=== PATIENT | female | born 1990 | race Two or more races ===

== ENCOUNTER 2020-07-18 12:07 | Observation (INO) | payer OTHER ==
[~2020-07-18 12:07] MED LIST: IBUP-2070 PO; PREN1TAB80 PO
[2020-07-18 12:53] LABS: COVID AG,FIA SOURCE NASOPHARYNGEAL
== END 2020-07-18 12:20 | disposition home or self-care (01) ==
LOC: 4S 12:07
PROVIDERS: ADMIT Obstetrics & Gynecology; ATTEND Obstetrics & Gynecology
DX: Z34.93 Encounter for supervision of normal pregnancy, unspecified, third trimester (principal); Z20.828 Contact with and (suspected) exposure to other viral communicable diseases; Z3A.39 39 weeks gestation of pregnancy
CPT/HCPCS: 87426; 99219

== ENCOUNTER 2020-07-20 05:55 | Inpatient (IN) | payer OTHER ==
[~2020-07-20] VITALS: Ht 154.9 cm; Wt 59.9 kg
[2020-07-20] MEDS ORDERED: RINGERS SOLUTION,LACTATED 1,000 ML IV ONE ×3 (06:04→08:48)
[2020-07-20] MEDS ORDERED: CITRIC ACID/SODIUM CITRATE 30 ML SOLUTION UDCUP PO ONE (06:15)
[2020-07-20] MEDS ORDERED: METOCLOPRAMIDE HCL 5 MG/ML 2 ML VIAL IVP ONE (06:15)
[2020-07-20 06:30] VITALS: BP 112/75
[2020-07-20 06:42] LABS: BASOPHILS % (AUTO) 0.4 % (0.0-2.0); EOSINOPHILS % (AUTO) 3.2 % (1.0-6.0); HEMATOCRIT 35.5 % (36-46); HEMOGLOBIN 12.3 g/dL (12.0-16.0); LYMPHOCYTES # (AUTO) 2.1 K/uL (1.0-4.8); LYMPHOCYTES % (AUTO) 27.4 % (22.0-44.0); MEAN CORPUSCULAR HEMOGLOBIN 32.3 pg (26.0-34.0); MEAN CORPUSCULAR HGB CONC 34.8 G/dL (31.0-37.0); MEAN CORPUSCULAR VOLUME 93 fL (80-100); MONOCYTES # (AUTO) 0.5 K/uL (0.1-1.0); NEUTROPHILS # (AUTO) 4.9 K/uL (1.8-7.7); PLATELET COUNT (AUTO) 183 K/uL (150-450); RED BLOOD CELL COUNT(AUTO) 3.82 MIL/uL (4.00-5.20); RED CELL DISTRIBUTION WIDTH 13.3 % (11.5-14.5)
[2020-07-20] MEDS ORDERED: FOLI0.4T92 PO (06:58)
[2020-07-20] MEDS ORDERED: BUPIVACAINE HCL/DEX-WATER/PF 0.75% 2 ML AMP ONE (07:17)
[2020-07-20] MEDS ORDERED: SODIUM CHLORIDE 0.9% 1,000 ML ONE (07:18)
[2020-07-20] MEDS ORDERED: FentaNYL CITRATE-PF 100 MCG/2 ML VIAL IVP PRN ×2 (08:30)
[2020-07-20] MEDS ORDERED: MEPERIDINE-PF 25 MG/ML VIAL IVP PRN (08:30)
[2020-07-20] MEDS ORDERED: NALOXONE HCL 0.4 MG/ML VIAL IVP PRN (08:30)
[2020-07-20] MEDS ORDERED: HYDROmorphone 2 MG/ML SYRINGE IVP PRN (08:30)
[2020-07-20] MEDS ORDERED: DiphenhydrAMINE HCL 50 MG/ML VIAL IVP PRN (08:30)
[2020-07-20] MEDS ORDERED: NALBUPHINE HCL 10 MG/ML VIAL IVP PRN ×2 (08:30)
[2020-07-20] MEDS ORDERED: MORPHINE SULFATE 10 MG/ML SYRINGE IVP PRN (08:30)
[2020-07-20] MEDS ORDERED: ONDANSETRON HCL 4 MG/2 ML VIAL IVP PRN (08:30)
[2020-07-20] MEDS ORDERED: LANOLIN 7 GM OINTMENT TP PRN (09:00)
[2020-07-20] MEDS ORDERED: OxyCODONE HCL/ACETAMINOPHEN 5-325 MG TABLET PO PRN ×2 (09:00)
[2020-07-20] MEDS ORDERED: OXYTOCIN 30 UNITS/LACT RINGERS 500 ML IV ONE (09:00)
[2020-07-20] MEDS ORDERED: ACETAMINOPHEN 1000 MG/ISO-OSM 100 ML IV ONE (09:33)
[2020-07-20] MEDS: ACETAMINOPHEN 1000 MG/ISO-OSM 100 ML IV SCH ×2 (09:36→17:18)
[2020-07-20] MEDS ORDERED: EPHEDrine SULFATE 50 MG/ML VIAL IM ONE (12:00)
[2020-07-20] MEDS ORDERED: 0.9% SODIUM CHLORIDE 10 ML VIAL IVP ONE (12:00)
[2020-07-20] MEDS ORDERED: OXYTOCIN 10 UNITS/ML VIAL IM ONE (12:00)
[2020-07-20] MEDS ORDERED: ONDANSETRON HCL 4 MG/2 ML VIAL IVP ONE (12:00)
[2020-07-20] MEDS: RINGERS SOLUTION,LACTATED 1,000 ML IV SCH ×2 (13:18→17:18)
[2020-07-20] MEDS ORDERED: INFLUENZA VIRUS VACCINE QVS 2020-21 (6MO+)/PF 60 MCG/0.5 ML SYRINGE IM ONE (13:45)
[2020-07-20] MEDS: KETOROLAC TROMETHAMINE 30 MG/ML VIAL IVP SCH ×2 (14:38→20:16)
[2020-07-20] MEDS ORDERED: OXYGEN THERAPY IH SCH ×3 (20:00)
[2020-07-20] MEDS: MAGNESIUM HYDROXIDE SUSPENSION 30 ML UDCUP PO SCH (21:10)
[2020-07-21 07:01] LABS: BASOPHILS % (AUTO) 0.2 % (0.0-2.0); EOSINOPHILS % (AUTO) 1.7 % (1.0-6.0); HEMATOCRIT 34.3 % (36-46); HEMOGLOBIN 11.5 g/dL (12.0-16.0); LYMPHOCYTES # (AUTO) 1.4 K/uL (1.0-4.8); LYMPHOCYTES % (AUTO) 17.5 % (22.0-44.0); MEAN CORPUSCULAR HEMOGLOBIN 31.6 pg (26.0-34.0); MEAN CORPUSCULAR HGB CONC 33.4 G/dL (31.0-37.0); MEAN CORPUSCULAR VOLUME 95 fL (80-100); MONOCYTES # (AUTO) 0.5 K/uL (0.1-1.0); MONOCYTES % (AUTO) 5.9 % (2.0-9.0); NEUTROPHILS # (AUTO) 6.1 K/uL (1.8-7.7); NEUTROPHILS % (AUTO) 74.7 % (40.0-70.0); PLATELET COUNT (AUTO)-OB 197 K/uL (150-450); RED BLOOD CELL COUNT(AUTO) 3.62 MIL/uL (4.00-5.20); RED CELL DISTRIBUTION WIDTH 13.1 % (11.5-14.5)
[2020-07-21] MEDS: MAGNESIUM HYDROXIDE SUSPENSION 30 ML UDCUP PO SCH ×2 (08:58→21:48)
[2020-07-21] MEDS: IBUPROFEN 800 MG TABLET PO PRN ×2 (15:55→21:48)
[2020-07-22] MEDS: IBUPROFEN 800 MG TABLET PO PRN ×3 (03:33→17:21)
[2020-07-22] MEDS ORDERED: FentaNYL CITRATE-PF 100 MCG/2 ML VIAL IVP ONE (12:00)
[2020-07-22] MEDS ORDERED: MIDAZOLAM HCL 2 MG/2 ML VIAL IVP ONE (12:00)
[2020-07-22] MEDS ORDERED: MORPHINE SULFATE/PF 0.5 MG/ML 10 ML AMP IVP ONE (12:00)
[2020-07-22] MEDS: MAGNESIUM HYDROXIDE SUSPENSION 30 ML UDCUP PO SCH (15:40)
[2020-07-22] MEDS ORDERED: ACET-2865 PO (16:07)
[2020-07-22] MEDS ORDERED: IBUP-2071 PO (16:09)
== END 2020-07-22 19:06 | disposition home or self-care (01) | DRG 788 ==
LOC: 4S 05:55 → PREOBSVTOIN 07-22 06:09
PROVIDERS: ADMIT Obstetrics & Gynecology; ATTEND Obstetrics & Gynecology Obstetrics
PROC: 10D00Z1 Extraction of Products of Conception, Low, Open Approach (ICD-10-PCS; principal; 2020-07-20)
PROC: 3E02340 Introduction of Influenza Vaccine into Muscle, Percutaneous Approach (ICD-10-PCS; 2020-07-20)
DX: O34.211 Maternal care for low transverse scar from previous cesarean delivery (principal); Z3A.39 39 weeks gestation of pregnancy; Z37.0 Single live birth; Z23 Encounter for immunization
CPT/HCPCS: 86850; 86900; 86901; 86923; 87081; 90686; J0131; J0690; J1885; J2250; J2274; J2405; J2590; J2765; J3010; J3490; J7030; J7120